=== PATIENT | female | born 1995 | race Caucasian/White ===

== ENCOUNTER 2018-10-20 07:38 | Emergency (ER) | payer OTHER ==
[~2018-10-20] VITALS: Ht 167.6 cm; Wt 97.5 kg
[2018-10-20 08:06] LABS: URINE BILIRUBIN NEGATIVE (Negative); URINE BLOOD TRACE (Negative); URINE CLARITY CLEAR; URINE COLOR YELLOW; URINE GLUCOSE-RANDOM NEGATIVE (Negative); URINE KETONES NEGATIVE (Negative); URINE LEUKOCYTES-REFLEX 1+ (Negative); URINE NITRITE-REFLEX NEGATIVE (Negative); URINE PROTEIN 1+ (Negative); URINE SPECIFIC GRAVITY 1.025 (1.005-1.030); URINE UROBILINOGEN 0.2 E.U./dl (0.2-1.0)
[2018-10-20 08:12] LABS: CASTS None Seen /LPF (None Seen); CRYSTALS None Seen /LPF (None Seen); MUCUS 4-6 Moderate strn/LPF (None Seen); SQUAMOUS 4-10 Moderate /LPF (0-3); URINE RBC 0-2 Rare /HPF (0-2); URINE WBC-REFLEX 6-15 Few /HPF (0-5)
[2018-10-20 08:13] LABS: AMP/METHAMP Negative (Negative); BARBITURATES Negative (Negative); BENZODIAZEPINES POSITIVE (Negative); COCAINE Negative (Negative); METHADONE Negative (Negative); OPIATES Negative (Negative); PCP Negative (Negative); THC POSITIVE (Negative)
[2018-10-20 08:14] LABS: CALCIUM 9.6 mg/dL (8.5-10.1); CREATININE 0.8 mg/dL (0.6-1.3); POTASSIUM 4.2 mmol/L (3.5-5.1)
[2018-10-20 08:19] LABS: ALBUMIN 4.4 g/dL (3.4-5.0); TOTAL BILIRUBIN 0.4 mg/dL (<0.1-1.0); TOTAL PROTEIN 8.4 g/dL (6.4-8.2)
[2018-10-20 08:48] LABS: HEMOGLOBIN 14.9 gm/dL (12.0-15.0); MCH 29.1 pg (26.0-34.0); MCHC 33.9 g/dL (28.0-37.0); MPV 13.2 fl. (7.2-11.1); NUCLEATED RBCS 0 /100WBC; PLATELET COUNT* 143 thou/uL (150-400); RBC 5.11 mil/uL (4.20-5.00); RDW-CV 13.2 % (10.5-14.5); WBC 19.7 thou/uL (4.0-11.0)
[2018-10-20] MEDS ORDERED: BACTRIM DS TAB1 EACH PO (08:57)
[2018-10-20] MEDS ORDERED: ZOFRAN4 MG PO (08:57)
[2018-10-20 09:10] VITALS: BP 130/88
[2018-10-20 09:18] LABS: ABSOLUTE LYMPHOCYTES 2.6 thou/uL (0.8-5.3); ABSOLUTE MONOCYTES 1.4 thou/uL (0.0-1.2); ABSOLUTE NEUTROPHILS 15.8 thou/uL (1.6-8.1); ANISOCYTOSIS 1+; LARGE PLATELETS OCCASIONAL; PLATELET ESTIMATE DECREASED; POIKILOCYTOSIS 1+
== END 2018-10-20 09:12 | disposition home or self-care (01) ==
LOC: M.ERS 07:38
PROVIDERS: Emergency Medicine
DX: N39.0 Urinary tract infection, site not specified (principal); Z88.1 Allergy status to other antibiotic agents; R19.7 Diarrhea, unspecified

== ENCOUNTER 2019-05-13 00:56 | Emergency (ER) | payer OTHER ==
[~2019-05-13] VITALS: Ht 167.6 cm; Wt 99.8 kg
[~2019-05-13 00:56] MED LIST: BACTRIM DS TAB1 EACH PO; ZOFRAN4 MG PO
[2019-05-13 01:38] LABS: URINE BILIRUBIN NEGATIVE (Negative); URINE BLOOD NEGATIVE (Negative); URINE CLARITY CLEAR; URINE COLOR YELLOW; URINE GLUCOSE-RANDOM NEGATIVE (Negative); URINE KETONES NEGATIVE (Negative); URINE LEUKOCYTES-REFLEX NEGATIVE (Negative); URINE NITRITE-REFLEX NEGATIVE (Negative); URINE PROTEIN NEGATIVE (Negative); URINE SPECIFIC GRAVITY 1.015 (1.005-1.030); URINE UROBILINOGEN 0.2 E.U./dl (0.2-1.0)
[2019-05-13 01:40] LABS: ABSOLUTE BASOPHILS 0.1 thou/uL (0.0-0.2); ABSOLUTE EOSINOPHILS 0.4 thou/uL (0.0-0.7); ABSOLUTE LYMPHOCYTES 3.2 thou/uL (0.8-5.3); ABSOLUTE MONOCYTES 0.5 thou/uL (0.0-1.2); ABSOLUTE NEUTROPHILS 6.6 thou/uL (1.6-8.1); BASOPHILS 0.5 %; EOSINOPHILS 3.3 %; HEMATOCRIT 40.4 % (37.0-47.0); HEMOGLOBIN 13.7 gm/dL (12.0-15.0); LYMPHOCYTES 29.5 %; MCH 29.1 pg (26.0-34.0); MCV 85.7 fL (80.0-100.0); MONOCYTES 5.1 %; MPV 12.6 fl. (7.2-11.1); NUCLEATED RBCS 0 /100WBC; PLATELET COUNT* 175 thou/uL (150-400); POLYS 61.6 %; RBC 4.71 mil/uL (4.20-5.00); WBC 10.8 thou/uL (4.0-11.0)
[2019-05-13 01:45] LABS: CALCIUM 8.4 mg/dL (8.5-10.1); CREATININE 0.8 mg/dL (0.6-1.3); POTASSIUM 4.1 mmol/L (3.5-5.1)
[2019-05-13 01:55] LABS: ALBUMIN 3.7 g/dL (3.4-5.0); TOTAL BILIRUBIN 0.2 mg/dL (<0.1-1.0); TOTAL PROTEIN 7.3 g/dL (6.4-8.2)
[2019-05-13] MEDS ORDERED: ZOFRAN ODT4 MG PO (03:26)
[2019-05-13] MEDS ORDERED: ULTRAM 50MG TAB50 MG PO (03:26)
[2019-05-13] MEDS ORDERED: BENTYL 20 MG TA20 M1 PO (03:26)
[2019-05-13 03:42] VITALS: BP 128/69
== END 2019-05-13 03:42 | disposition home or self-care (01) ==
LOC: M.ERS 00:56
PROVIDERS: Personal Emergency Response Attendant
DX: R10.84 Generalized abdominal pain (principal)